=== PATIENT | male | born 1955 | race Caucasian/White ===

== ENCOUNTER 2017-12-14 08:54 | Emergency (ER) | payer OTHER ==
[~2017-12-14] VITALS: Ht 182.9 cm; Wt 163.3 kg
[2017-12-14] MEDS ORDERED: METFORMIN HCL1000 MG PO (09:14)
[2017-12-14] MEDS ORDERED: GLYBURIDE5 MG PO (09:15)
[2017-12-14] MEDS ORDERED: ALLOPURINOL300 MG PO (09:15)
[2017-12-14] MEDS ORDERED: FISH OIL 1,2001 EACH PO (09:15)
[2017-12-14] MEDS ORDERED: LISINOPRIL20 MG PO (09:15)
[2017-12-14] MEDS ORDERED: INDOMETHACIN50 MG PO (09:16)
--- NOTE | 2017-12-14 19:33 | EKG ---
[facility] [address] [place] [address] Signed Atrial fibrillation with slow ventricular response with premature ventricular or aberrantly conducted complexes Right bundle branch block Possible Lateral infarct , age undetermined Abnormal ECG No previous ECGs available Confirmed by ANABELL ORR MD ([id number]) on 12/14/2017 6:14:49 PM Electronically Signed By: ANABELL ORR MD 12/14/171932 PATIENT NAME: JORGEDMITRIY JONE Electrocardiogram DATE OF : 59 PHYSICIAN: ANABELL ORR MD REPORT #: [id number] REPORT IS CONFIDENTIAL AND NOT TO BE RELEASED WITHOUT AUTHORIZATION
== END 2017-12-14 14:23 | disposition short-term general hospital (02) ==
LOC: ED 08:54
DX: I48.91 Unspecified atrial fibrillation (principal); Z88.0 Allergy status to penicillin; Z79.84 Long term (current) use of oral hypoglycemic drugs; Z79.899 Other long term (current) drug therapy
CPT/HCPCS: 71045; 80053; 81001; 83735; 84443; 84484; 85025; 93005; 93010; 96360; 99285; J7120